=== PATIENT | female | born 1960 | race Caucasian/White ===

== ENCOUNTER 2018-06-24 22:09 | Inpatient (IN) | payer MEDICAID, OTHER ==
[2018-06-24] MEDS: ONDANSETRON 4 MG INJ IV (22:50)
[2018-06-24] MEDS: morphine 4 MG/ML VIAL IV (22:50)
[2018-06-24] MEDS: SOD CHLORIDE 0.9% 500 ML IV (22:51)
[2018-06-24 22:58] LABS: ADD MAN DIFF? NO
[2018-06-24 23:01] LABS: WHITE BLOOD COUNT 15.8 10^3/ul (4.8-10.8)
[2018-06-24 23:01] LABS: ABNORMAL IP MESSAGE 1; BASOPHIL # 0.1 10^3/ul (0.0-0.1); BASOPHILS % 0.4 % (0.0-2.0); EOSINOPHILS % 0.1 % (0.0-7.0); HEMATOCRIT 41.6 % (37.0-47.0); HEMOGLOBIN 13.9 g/dl (12.0-16.0); LYMPHOCYTES # 1.7 10^3/ul (0.8-2.9); LYMPHOCYTES % 10.6 % (15.0-51.0); MEAN CORPUSCULAR HEMOGLOBIN 29.3 pg (29.0-33.0); MEAN CORPUSCULAR HGB CONC 33.4 g/dl (32.0-37.0); MEAN CORPUSCULAR VOLUME 87.8 fl (82.0-101.0); MEAN PLATELET VOLUME 10.8 fl (7.4-10.4); MONOCYTE # 1.8 10^3/ul (0.3-0.9); MONOCYTES % 11.4 % (0.0-11.0); NEUTROPHIL # 12.2 10^3/ul (1.6-7.5); NEUTROPHILS % 77.1 % (39.0-77.0); PLATELET COUNT 241 10^3/UL (140-415); RED BLOOD COUNT 4.74 10^6/ul (4.20-5.40); RED CELL DISTRIBUTION WIDTH 13.1 % (11.5-14.5)
[2018-06-24 23:13] LABS: POSITIVE DIFF @See below
[2018-06-24 23:22] LABS: ALANINE AMINOTRANSFERASE 36 IU/L (13-69); ALBUMIN 3.8 g/dl (3.3-4.9); ALKALINE PHOSPHATASE 105 IU/L (42-121); ANION GAP 13 (8-16); ASPARTATE AMINO TRANSFERASE 35 IU/L (15-46); BILIRUBIN,INDIRECT 1.2 mg/dl (0-1.1); BILIRUBIN,TOTAL 1.2 mg/dl (0.2-1.3); BLOOD UREA NITROGEN 12 mg/dl (7-20); CALCIUM 9.2 mg/dl (8.4-10.2); CARBON DIOXIDE 26 mmol/L (21-31); CHLORIDE 102 mmol/L (97-110); CREATININE 0.59 mg/dl (0.44-1.00); GLUCOSE 128 mg/dl (70-220); LIPASE 68 U/L (23-300); POTASSIUM 3.8 mmol/L (3.5-5.1); SODIUM 137 mmol/L (135-144)
[2018-06-24 23:33] LABS: TROPONIN-I < 0.012 ng/ml (0.000-0.120)
[2018-06-25] MEDS ORDERED: ACETAMINOPHEN 325 MG TAB PO (01:00)
[2018-06-25] MEDS ORDERED: PIPER-TAZO 3.375 GM IV (PMX) 100 ML IVPB (01:00)
[2018-06-25] MEDS ORDERED: NITROGLYCERIN (SL) 0.4 MG TAB SL (01:00)
[2018-06-25] MEDS ORDERED: ONDANSETRON 4 MG INJ IV ×2 (01:00→16:00)
[2018-06-25] MEDS ORDERED: NACL 0.9% 3 ML SYG IV (01:00)
[2018-06-25] MEDS ORDERED: LABETALOL HCL 20MG INJ IV ×2 (01:00→16:00)
[2018-06-25] MEDS: HYDROmorphONE 0.5 MG/0.5 ML SYG IV (01:18)
[2018-06-25 02:00] LABS: LACTIC ACID 0.6 mmol/L (0.5-2.0)
[2018-06-25] MEDS: SOD CHLORIDE 0.9% 100 ML (02:03)
[2018-06-25] MEDS: IOHEXOL 300MG/ML 150 ML BTL (02:03)
[2018-06-25] MEDS: DEXTROSE 5%-0.45% NACL 1,000 ML IV ×3 (02:37→20:09)
[2018-06-25] MEDS: PANTOPRAZOLE 40 MG INJ IV (05:32)
[2018-06-25] MEDS: PIPER-TAZO 3.375 GM IV (PMX) 100 ML IVPB ×3 (05:33→20:09)
[2018-06-25 06:07] LABS: ADD MAN DIFF? NO
[2018-06-25 06:11] LABS: WHITE BLOOD COUNT 12.2 10^3/ul (4.8-10.8)
[2018-06-25 06:11] LABS: ABNORMAL IP MESSAGE 1; BASOPHIL # 0.1 10^3/ul (0.0-0.1); BASOPHILS % 0.5 % (0.0-2.0); EOSINOPHILS # 0.1 10^3/ul (0.0-0.5); EOSINOPHILS % 0.4 % (0.0-7.0); HEMATOCRIT 38.5 % (37.0-47.0); HEMOGLOBIN 12.6 g/dl (12.0-16.0); LYMPHOCYTES # 1.5 10^3/ul (0.8-2.9); LYMPHOCYTES % 12.4 % (15.0-51.0); MEAN CORPUSCULAR HEMOGLOBIN 29.2 pg (29.0-33.0); MEAN CORPUSCULAR HGB CONC 32.7 g/dl (32.0-37.0); MEAN CORPUSCULAR VOLUME 89.3 fl (82.0-101.0); MEAN PLATELET VOLUME 11.2 fl (7.4-10.4); MONOCYTE # 1.7 10^3/ul (0.3-0.9); MONOCYTES % 13.9 % (0.0-11.0); NEUTROPHIL # 8.8 10^3/ul (1.6-7.5); PLATELET COUNT 217 10^3/UL (140-415); RED BLOOD COUNT 4.31 10^6/ul (4.20-5.40); RED CELL DISTRIBUTION WIDTH 13.2 % (11.5-14.5)
[2018-06-25 06:26] LABS: POSITIVE DIFF @See below
[2018-06-25 06:36] LABS: ALANINE AMINOTRANSFERASE 79 IU/L (13-69); ALBUMIN 3.1 g/dl (3.3-4.9); ALBUMIN/GLOBULIN RATIO 0.91; ALKALINE PHOSPHATASE 136 IU/L (42-121); ANION GAP 9 (8-16); ASPARTATE AMINO TRANSFERASE 89 IU/L (15-46); BILIRUBIN,INDIRECT 1.2 mg/dl (0-1.1); BILIRUBIN,TOTAL 1.2 mg/dl (0.2-1.3); BLOOD UREA NITROGEN 9 mg/dl (7-20); CALCIUM 8.1 mg/dl (8.4-10.2); CARBON DIOXIDE 27 mmol/L (21-31); CHLORIDE 104 mmol/L (97-110); CREATININE 0.51 mg/dl (0.44-1.00); GLUCOSE 132 mg/dl (70-220); POTASSIUM 3.3 mmol/L (3.5-5.1); SODIUM 137 mmol/L (135-144); TOTAL PROTEIN 6.5 g/dl (6.1-8.1)
[2018-06-25 06:49] LABS: TROPONIN-I < 0.012 ng/ml (0.000-0.120)
[2018-06-25] MEDS ORDERED: LIDOCAINE 2% (SDV) 5 ML INJ (07:00)
[2018-06-25] MEDS ORDERED: CEFAZOLIN 1 GM INJ (07:00)
[2018-06-25] MEDS ORDERED: ROPIVACAINE 0.5 % 30 ML VIAL ×2 (07:00→16:06)
[2018-06-25] MEDS: POTASSIUM CHLORIDE 100 ML IVPB ×2 (12:03→13:59)
[2018-06-25 12:07] LABS: TROPONIN-I < 0.012 ng/ml (0.000-0.120)
[2018-06-25] MEDS ORDERED: hydrALAzine 20 MG INJ IV (16:00)
[2018-06-25] MEDS ORDERED: OXYCODONE/ACETAMINOPHEN (5/325) TAB PO ×2 (16:00)
[2018-06-25] MEDS ORDERED: FENTAnyl 50 MCG/ML VIAL IV ×3 (16:00)
[2018-06-25] MEDS ORDERED: EPHEDrine SULFATE 50 MG/5 ML SYG IV (16:00)
[2018-06-25] MEDS ORDERED: ALBUTEROL 0.083% (NEB) 2.5 MG/3 ML AMP HHN (16:00)
[2018-06-25] MEDS ORDERED: DIPHENHYDRAMINE 50 MG INJ IV (16:00)
[2018-06-25] MEDS ORDERED: MEPERIDINE 25 MG INJ IV (16:00)
[2018-06-25] MEDS ORDERED: HYDROmorphONE 1 MG/5 ML IV SYRINGE IV ×2 (16:00)
[2018-06-25] MEDS ORDERED: PROPOFOL 20 ML (16:28)
[2018-06-25] MEDS ORDERED: DEXAMETHASONE 4 MG/ML 1 ML INJ (16:28)
[2018-06-25] MEDS ORDERED: ROCURONIUM 50 MG INJ (16:28)
[2018-06-25] MEDS ORDERED: ONDANSETRON 4 MG INJ (16:30)
[2018-06-25] MEDS ORDERED: NEOSTIGMINE 3 MG/3 ML SYRINGE (17:27)
[2018-06-25] MEDS ORDERED: GLYCOPYRROLATE 0.4 MG INJ (17:27)
[2018-06-25 17:50] LABS: ADD MAN DIFF? NO
[2018-06-25 17:51] LABS: WHITE BLOOD COUNT 19.1 10^3/ul (4.8-10.8)
[2018-06-25 17:51] LABS: BASOPHIL # 0.1 10^3/ul (0.0-0.1); BASOPHILS % 0.3 % (0.0-2.0); EOSINOPHILS % 0.1 % (0.0-7.0); HEMATOCRIT 39.1 % (37.0-47.0); HEMOGLOBIN 12.9 g/dl (12.0-16.0); LYMPHOCYTES # 1.4 10^3/ul (0.8-2.9); LYMPHOCYTES % 7.2 % (15.0-51.0); MEAN CORPUSCULAR HEMOGLOBIN 29.9 pg (29.0-33.0); MEAN CORPUSCULAR VOLUME 90.5 fl (82.0-101.0); MEAN PLATELET VOLUME 10.6 fl (7.4-10.4); MONOCYTE # 1.5 10^3/ul (0.3-0.9); MONOCYTES % 7.8 % (0.0-11.0); NEUTROPHILS % 84.1 % (39.0-77.0); PLATELET COUNT 231 10^3/UL (140-415); RED BLOOD COUNT 4.32 10^6/ul (4.20-5.40); RED CELL DISTRIBUTION WIDTH 12.9 % (11.5-14.5)
[2018-06-25] MEDS: METOCLOPRAMIDE 10 MG INJ IV (18:04)
[2018-06-25] MEDS: HYDROmorphONE 1 MG/5 ML IV SYRINGE IV (18:04)
[2018-06-25] MEDS: KETOROLAC 30 MG INJ IV (18:05)
[2018-06-26] MEDS: DEXTROSE 5%-0.45% NACL 1,000 ML IV ×2 (01:38→05:21)
[2018-06-26] MEDS: PANTOPRAZOLE 40 MG INJ IV (05:17)
[2018-06-26] MEDS: PIPER-TAZO 3.375 GM IV (PMX) 100 ML IVPB ×4 (05:17→18:54)
[2018-06-26 06:02] LABS: ADD MAN DIFF? NO
[2018-06-26 06:12] LABS: BASOPHILS % 0.1 % (0.0-2.0); HEMATOCRIT 36.1 % (37.0-47.0); HEMOGLOBIN 11.8 g/dl (12.0-16.0); LYMPHOCYTES # 0.7 10^3/ul (0.8-2.9); MEAN CORPUSCULAR HEMOGLOBIN 29.4 pg (29.0-33.0); MEAN CORPUSCULAR HGB CONC 32.7 g/dl (32.0-37.0); MEAN CORPUSCULAR VOLUME 89.8 fl (82.0-101.0); MEAN PLATELET VOLUME 10.8 fl (7.4-10.4); MONOCYTE # 0.8 10^3/ul (0.3-0.9); MONOCYTES % 7.4 % (0.0-11.0); NEUTROPHIL # 9.3 10^3/ul (1.6-7.5); NEUTROPHILS % 86.1 % (39.0-77.0); PLATELET COUNT 262 10^3/UL (140-415); RED BLOOD COUNT 4.02 10^6/ul (4.20-5.40); RED CELL DISTRIBUTION WIDTH 12.8 % (11.5-14.5)
[2018-06-26 06:12] LABS: WHITE BLOOD COUNT 10.8 10^3/ul (4.8-10.8)
[2018-06-26 06:34] LABS: ALANINE AMINOTRANSFERASE 85 IU/L (13-69); ALBUMIN/GLOBULIN RATIO 0.93; ALKALINE PHOSPHATASE 114 IU/L (42-121); ANION GAP 13 (8-16); ASPARTATE AMINO TRANSFERASE 80 IU/L (15-46); BILIRUBIN,INDIRECT 0.7 mg/dl (0-1.1); BILIRUBIN,TOTAL 0.7 mg/dl (0.2-1.3); BLOOD UREA NITROGEN 12 mg/dl (7-20); CALCIUM 8.2 mg/dl (8.4-10.2); CARBON DIOXIDE 26 mmol/L (21-31); CHLORIDE 105 mmol/L (97-110); CREATININE 0.65 mg/dl (0.44-1.00); GLUCOSE 151 mg/dl (70-220); POTASSIUM 4.1 mmol/L (3.5-5.1); SODIUM 140 mmol/L (135-144); TOTAL PROTEIN 6.2 g/dl (6.1-8.1)
[2018-06-26 07:47] LABS: HEMOGLOBIN A1C 5.6 % (0-5.9)
[2018-06-26] MEDS: HYDROCODONE/APAP (5/325) TAB PO (10:01)
[2018-06-26] MEDS ORDERED: DOCUSATE SODIUM 100 MG CAP PO (10:30)
[2018-06-26] MEDS: POLYETHYLENE GLYCOL 17 GM PACKET PO (11:32)
[2018-06-27] MEDS: morphine 2 MG INJ IV (01:08)
[2018-06-27] MEDS: PANTOPRAZOLE 40 MG INJ IV (07:16)
[2018-06-27] MEDS: POLYETHYLENE GLYCOL 17 GM PACKET PO (08:54)
[2018-06-27] MEDS: AMOXICILLIN/CLAV 875 MG TAB PO ×2 (09:00→21:26)
[2018-06-27] MEDS ORDERED: BISACODYL (EC) 5 MG TAB PO (12:00)
[2018-06-27] MEDS ORDERED: morphine LIQ (10 MG/5 ML) CUP PO (17:30)
[2018-06-27] MEDS: HYDROCODONE/APAP (5/325) TAB PO (18:31)
[2018-06-28] MEDS: PANTOPRAZOLE 40 MG INJ IV (05:50)
[2018-06-28] MEDS: POLYETHYLENE GLYCOL 17 GM PACKET PO (08:28)
[2018-06-28] MEDS: AMOXICILLIN/CLAV 875 MG TAB PO (08:28)
[2018-06-28] MEDS: HYDROCODONE/APAP (5/325) TAB PO (10:28)
== END 2018-06-28 16:25 | disposition home or self-care (01) | DRG 418 ==
LOC: 2NE 06-25 02:04 → E/R 22:09 → 2NE 06-26 19:20 → TEL 06-25 00:36
PROC: 0FT44ZZ Resection of Gallbladder, Percutaneous Endoscopic Approach (ICD-10-PCS; principal; 2018-06-25 15:57)
PROC: 0FN44ZZ Release Gallbladder, Percutaneous Endoscopic Approach (ICD-10-PCS; 2018-06-25 15:57)
PROC: 0F944ZZ Drainage of Gallbladder, Percutaneous Endoscopic Approach (ICD-10-PCS; 2018-06-25 15:57)
DX: K80.00 Calculus of gallbladder with acute cholecystitis without obstruction (principal); K82.1 Hydrops of gallbladder; E87.6 Hypokalemia; K59.00 Constipation, unspecified; R07.9 Chest pain, unspecified; K82.8 Other specified diseases of gallbladder
CPT/HCPCS: 36415; 71045; 71275; 74177; 76705; 80053; 83036; 83605; 83690; 83735; 84484; 85025; 86850; 86900; 86901; 87040; 88304; 93005; 93306; 96374; 96375; 99285-25